=== PATIENT | female | born 1990 | race African-American/Black ===

== ENCOUNTER 2018-12-29 10:37 | Inpatient (IN) | payer SELFPAY ==
[2018-12-29] MEDS ORDERED: MORPHINE SULFATE 10 MG/ML INJ IM ONE (11:16)
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
[2018-12-29] MEDS ORDERED: ENOXAPARIN SODIUM INJ 80 MG/0.8 ML DISP.SYRIN SUBCUT ONE (11:53)
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
--- NOTE | 2018-12-29 12:10 | RADIOLOGY REPORT (SQ) ---
EXAM DESCRIPTION: VENOUS UNILATERAL LOWER COMPLETED DATE/TIME: 12/29/2018 12:00 pm REASON FOR STUDY: Left lower extremity pain and swelling COMPARISON: None. TECHNIQUE: Dynamic and static damian scale and color images acquired of the left leg venous system. Se lected spectral images acquired with additional compression and augmentation maneuvers. The contralat eral common femoral vein and saphenofemoral junction were also imaged. Images stored on PACS. LIMITATIONS: None. FINDINGS: COMMON FEMORAL: Normal phasicity, compression and augmentation. No visualized echogenic ma terial on damian scale. No defects on color images. FEMORAL: Normal compression and augmentation. No visualized echogenic material on damian scale. No defe cts on color images. POPLITEAL: Partially occlusive thrombus. CALF VESSELS: Occlusive thrombus in the posterior tibial and peroneal vein. GSV and SSV: Normal compression, augmentation. No visualized echogenic material on damian scale. No def ects on color images. ANY DEEP VENOUS INSUFFICIENCY: Not evaluated. ANY EVIDENCE OF POPLITEAL CYST: No. OTHER: No other significant finding. CONTRALATERAL COMMON FEMORAL VEIN AND SAPHENOFEMORAL JUNCTION: Normal phasicity, compression and augmentation. No visualized echogenic material on damian scale. No de fects on color images. IMPRESSION: ACUTE DVT. PARTIALLY OCCLUSIVE THROMBUS IN THE POPLITEAL VEIN AND OCCLUSIVE THROMBUS IN THE POSTERIOR TIBIAL AND PERONEAL VEIN. TECHNICAL DOCUMENTATION: JOB ID: [id number] [employer] All Rights Reserved Reading location - IP/workstation name: [email or web address]
[2018-12-29 13:00] LABS: ABSOLUTE BASOPHILS # (AUTO) 0.1 10^3/uL (0.0-0.2); ABSOLUTE EOSINOPHILS # (AUTO) 0.2 10^3/uL (0.0-0.6); ABSOLUTE LYMPHOCYTES (AUTO) 2.2 10^3/uL (0.5-4.7); ABSOLUTE MONOCYTES (AUTO) 0.8 10^3/uL (0.1-1.4); ABSOLUTE NEUT (AUTO) 8.7 10^3/uL (1.7-8.2); BASOPHILS % (AUTO) 0.7 % (0-2); EOSINOPHILS % (AUTO) 1.3 % (0-6); HEMATOCRIT 47.4 % (36.0-47.0); HEMOGLOBIN 15.6 g/dL (12.0-15.5); LYMPHOCYTES % (AUTO) 18.5 % (13-45); MEAN CORPUSCULAR HEMOGLOBIN 28.6 pg (27.0-33.4); MEAN CORPUSCULAR HGB CONC 32.9 g/dL (32.0-36.0); MEAN CORPUSCULAR VOLUME 87 fl (80-97); MONOCYTES % (AUTO) 6.6 % (3-13); PLATELET COUNT 274 10^3/uL (150-450); RED BLOOD COUNT 5.46 10^6/uL (3.72-5.28); RED CELL DISTRIBUTION WIDTH 15.8 % (11.5-14.0); SEGMENTED NEUTROPHILS % (AUTO) 72.9 % (42-78); TOTAL CELLS COUNTED % (AUTO) 100 %
--- NOTE | 2018-12-29 13:11 | RADIOLOGY REPORT (SQ) ---
EXAM DESCRIPTION: TIBIA FIBULA LEFT COMPLETED DATE/TIME: 12/29/2018 1:03 pm REASON FOR STUDY: Left lower extremity pain COMPARISON: None. NUMBER OF VIEWS: Two views. TECHNIQUE: Two radiographic images acquired of the left tibia and fibula to include the knee and ank le in at least one projection. LIMITATIONS: None. FINDINGS: MINERALIZATION: Normal. BONES: No acute fracture or dislocation. No worrisome bone lesions. SOFT TISSUES: No obvious swelling or foreign body. OTHER: No other significant finding. IMPRESSION: NEGATIVE STUDY OF THE LEFT TIBIA AND FIBULA. NO RADIOGRAPHIC EVIDENCE OF ACUTE INJURY. TECHNICAL DOCUMENTATION: JOB ID: [id number] [employer]- All Rights Reserved Reading location - IP/workstation name: [email or web address]
[2018-12-29 13:20] LABS: ALANINE AMINOTRANSFERASE 33 U/L (9-52); ALBUMIN 4.3 g/dL (3.5-5.0); ALKALINE PHOSPHATASE 150 U/L (38-126); ANION GAP 11 (5-19); ASPARTATE AMINO TRANSFERASE 31 U/L (14-36); BILIRUBIN,DIRECT 0.2 mg/dL (0.0-0.4); BILIRUBIN,TOTAL 0.4 mg/dL (0.2-1.3); BLOOD UREA NITROGEN 5 mg/dL (7-20); CALCIUM 9.5 mg/dL (8.4-10.2); CARBON DIOXIDE 26 mmol/L (22-30); CHLORIDE 107 mmol/L (98-107); GLUCOSE 87 mg/dL (75-110); POTASSIUM 4.8 mmol/L (3.6-5.0); SODIUM 143.9 mmol/L (137-145); TOTAL PROTEIN 7.3 g/dL (6.3-8.2)
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
[2018-12-29] MEDS ORDERED: ONDANSETRON 4 MG TAB.RAPDIS PO PRN (15:46)
[2018-12-29] MEDS ORDERED: ACETAMINOPHEN 325 MG TABLET PO PRN (15:46)
--- NOTE | 2018-12-29 15:48 | RADIOLOGY REPORT (SQ) ---
EXAM DESCRIPTION: CTA CHEST COMPLETED DATE/TIME: 12/29/2018 3:31 pm REASON FOR STUDY: acute dvt COMPARISON: None. TECHNIQUE: CT scan of the chest performed using helical scanning technique with dynamic intravenous contrast injection. Images reviewed with lung, soft tissue and bone windows. Reconstructed coronal and sagittal MPR images reviewed. Additional 3 dimensional post-processing performed to develop Maximal Intensity Projection images (AL P). All images stored on PACS. All CT scanners at this facility use dose modulation, iterative reconstruction, and/or weight based d osing when appropriate to reduce radiation dose to as low as reasonably achievable (ALARA). [facility]: Dose Right [facility]: CareDose [facility]: Dose Right [facility]: Teradose 4D [facility]: Vigoda CONTRAST TYPE AND DOSE: contrast/concentration: Isovue 350.00 mg/ml; Total Contrast Delivered: 74.0 ml; Total Saline Delivered: 90.0 ml Contrast bolus adequate for pulmonary arteries and aorta. RENAL FUNCTION: BUN 5 creatinine 0.57. RADIATION DOSE: CT Rad equipment meets quality standard of care and radiation dose reduction techniq ues were employed. CTDIvol: 14.3 - 24.8 mGy. DLP: 543 mGy-cm. . LIMITATIONS: None. FINDINGS: LUNGS AND PLEURA: No masses, infiltrates, or pneumothorax. No pleural effusions or pleura l calcifications. AORTA AND GREAT VESSELS: No aneurysm. Contrast bolus not optimized for the aorta. HEART: No pericardial effusion. No significant coronary artery calcifications. PULMONARY ARTERIES: Thrombus in a segmental branch to the right lower lobe (axial series 3 images 63- 77 and reconstructed series 603, image 16). HILAR AND MEDIASTINAL STRUCTURES: No identified masses or abnormal nodes. HARDWARE: None in the chest. UPPER ABDOMEN: No significant findings. Limited exam. THYROID AND OTHER SOFT TISSUES: No masses. No adenopathy. BONES: No acute or significant finding. 3D MIPS: Confirm above findings. OTHER: Circumscribed low-attenuation mass in the right breast, measuring 2.4 cm. IMPRESSION: 1. THROMBUS IN A SEGMENTAL ARTERIAL BRANCH TO THE RIGHT LOWER LOBE. 2. RIGHT BREAST MASS, PROBABLY A CYST. RECOMMEND FOLLOW-UP WITH ELECTIVE ULTRASOUND OF THE RIGHT JORGE A AST. COMMENT: Quality ID # [id number]: Final reports with documentation of one or more dose reduction techniques (e.g., Automated exposure control, adjustment of the mA and/or kV according to patient size, use of iterative reconstruction technique) TECHNICAL DOCUMENTATION: JOB ID: [id number] [employer]- All Rights Reserved Reading location - IP/workstation name: [email or web address]
[2018-12-29 16:08] LABS: INTERNATIONAL RATION (INR) 0.96; PROTHROMBIN TIME 13.3 SEC (11.4-15.4)
--- NOTE | 2018-12-29 17:14 | PDOC H&P ---
History of Present Illness Admission Date/PCP: 12/29/18 15:15 Patient complains of: LEFT LEG PAIN History of Present Illness: BANDAR CARSON is a 28 year old female with no PMH. She presented to the emergency department with a 4-day history of left lower extremity pain. She describes the pain as 'pressure.' The patient admits to a 10 year history of smoking. She is not on control, denies recent travel, denies clotting disorder. Unilateral venous Doppler confirms acute DVT. Partially occlusive thrombus in the popliteal vein and occlusive thrombus in the posterior tibial and peroneal vein. The patient was treated with full dose Lovenox. She is without health insurance, and unable to afford [place] Lovenox. Plan to admit to hospitalist service on heparin gtt and bridged to oral anticoagulant. Past Medical History Past Medical History: UTERINE CYSTS Past Surgical History Past Surgical History: Reports: None Social History Information Source: Patient Lives with: Friend Smoking Status: Current Every Day Smoker Cigarettes Packs Per Day: 1 Number of Years Smokin Frequency of Alcohol Use: Occasional Hx Recreational Drug Use: Yes Drugs: Marijuana Hx Prescription Drug Abuse: No - Advance Directive Resuscitation Status: Full Code Family History Family History: DM, Hypertension Parental Family History Reviewed: Yes Children Family History Reviewed: Yes Sibling(s) Family History Reviewed.: Yes Medication/Allergy Home Medications: No Home Medications 12/29/18 Allergies/Adverse Reactions: No Known Allergies Allergy (Verified 12/29/18 10:39) Review of Systems All systems: reviewed and no additional remarkable complaints except as stated Physical Exam Vital Signs: Temp Pulse Resp BP Pulse Ox 99.1 F 90 18 128/81 H 99 12/29/18 11:04 12/29/18 11:04 12/29/18 11:04 12/29/18 11:04 12/29/18 11:04 Intake & Output 12/28/18 12/29/18 12/30/18 06:59 06:59 06:59 Weight 80 kg General appearance: PRESENT: no acute distress Eye exam: PRESENT: conjunctiva pink, PERRLA Mouth exam: PRESENT: moist, tongue midline Neck exam: PRESENT: full ROM Respiratory exam: PRESENT: clear to auscultation aniya, symmetrical, unlabored Cardiovascular exam: PRESENT: +S1, +S2 Pulses: PRESENT: normal radial pulses GI/Abdominal exam: PRESENT: normal bowel sounds, soft. ABSENT: tenderness Rectal exam: PRESENT: deferred Extremities exam: PRESENT: full ROM. ABSENT: joint swelling, pedal edema Musculoskeletal exam: PRESENT: full ROM, normal inspection Neurological exam: PRESENT: alert, awake, oriented to person, oriented to place, oriented to time, oriented to situation Psychiatric exam: PRESENT: appropriate affect Skin exam: PRESENT: dry, intact, normal color Results Laboratory Results: 12/29/18 12:25 12/29/18 12:25 12/29/18 12/29/18 12:25 12:25 WBC 12.0 H RBC 5.46 H Hgb 15.6 H Hct 47.4 H MCV 87 MCH 28.6 MCHC 32.9 RDW 15.8 H Plt Count 274 Seg Neutrophils % 72.9 Lymphocytes % 18.5 Monocytes % 6.6 Eosinophils % 1.3 Basophils % 0.7 Absolute Neutrophils 8.7 H Absolute Lymphocytes 2.2 Absolute Monocytes 0.8 Absolute Eosinophils 0.2 Absolute Basophils 0.1 Sodium 143.9 Potassium 4.8 Chloride 107 Carbon Dioxide 26 Anion Gap 11 BUN 5 L Creatinine 0.57 Est GFR ( Amer) > 60 Est GFR (Non-Af Amer) > 60 Glucose 87 Calcium 9.5 Total Bilirubin 0.4 AST 31 ALT 33 Alkaline Phosphatase 150 H Total Protein 7.3 Albumin 4.3 Impressions: Tibia/Fibula X-Ray 12/29/18 11:16 IMPRESSION: NEGATIVE STUDY OF THE LEFT TIBIA AND FIBULA. NO RADIOGRAPHIC EVIDENCE OF ACUTE INJURY. Venous Doppler Study 12/29/18 11:16 IMPRESSION: ACUTE DVT. PARTIALLY OCCLUSIVE THROMBUS IN THE POPLITEAL VEIN AND OCCLUSIVE THROMBUS IN THE POSTERIOR TIBIAL AND PERONEAL VEIN. Chest/Abdomen CTA 12/29/18 14:53 IMPRESSION: 1. THROMBUS IN A SEGMENTAL ARTERIAL BRANCH TO THE RIGHT LOWER LOBE. 2. RIGHT BREAST MASS, PROBABLY A CYST. RECOMMEND FOLLOW-UP WITH ELECTIVE ULTRASOUND OF THE RIGHT BREAST. Status: Imported from PACS Assessment & Plan - Diagnosis (1) DVT (deep venous thrombosis) Qualifiers: DVT location: lower extremity Affected thrombotic vein of extremity: popliteal Chronicity: acute Laterality: left Qualified Code(s): I82.432 - Acute embolism and thrombosis of left popliteal vein Is this a current diagnosis for this admission?: Yes Plan: Main risk factor is smoking - no control, travel or clotting factor disorder Patient w/o insurance cannot afford lovenox Admit on heparin gtt, plan to bridge to oral anticoagulant CTA chest to r/o PE - results pending will discuss with discharge planning about medication assistance - Time Time Spent: 30 to 50 Minutes Smoking Cessation Education: 3 to 10 minutes Anticipated discharge: Home Within: within 72 hours - Inpatient Certification Based on my medical assessment, after consideration of the patient's comorbidities, presenting symptoms, or acuity I expect that the services needed warrant INPATIENT care.: Yes I certify that my determination is in accordance with my understanding of Medicare's requirements for reasonable and necessary INPATIENT services [42 CFR 412.3e].: Yes Medical Necessity: Risk of Complication if Not Cared For in Hospital
[2018-12-29] MEDS ORDERED: HEPARIN SOD (PORCINE) 1,000 UNIT/ML 10 ML VIAL ONE (20:44)
[2018-12-29] MEDS: HEPARIN SODIUM,PORCINE/D5W 25,000 UNIT/250 ML RTUINJ IV PRN (20:54)
[2018-12-29] MEDS ORDERED: HEPARIN SOD (PORCINE) 1,000 UNIT/ML 10 ML VIAL IV ONE (21:15)
[2018-12-29] MEDS ORDERED: DIAZEPAM INJ 10 MG/2 ML DISP.SYRIN IV PRN (21:25)
[2018-12-29] MEDS: FAMOTIDINE 20 MG TABLET PO SCH (21:53)
[2018-12-29] MEDS: NALBUPHINE HCL INJ 10 MG/1 ML AMPULE IV PRN (21:53)
[2018-12-30] MEDS: DIAZEPAM 5 MG TABLET PO SCH ×3 (00:39→11:05)
[2018-12-30 03:14] LABS: ABSOLUTE BASOPHILS # (AUTO) 0.1 10^3/uL (0.0-0.2); ABSOLUTE EOSINOPHILS # (AUTO) 0.2 10^3/uL (0.0-0.6); ABSOLUTE LYMPHOCYTES (AUTO) 2.8 10^3/uL (0.5-4.7); ABSOLUTE MONOCYTES (AUTO) 0.7 10^3/uL (0.1-1.4); ABSOLUTE NEUT (AUTO) 9.5 10^3/uL (1.7-8.2); BASOPHILS % (AUTO) 0.4 % (0-2); EOSINOPHILS % (AUTO) 1.7 % (0-6); HEMATOCRIT 42.6 % (36.0-47.0); HEMOGLOBIN 14.1 g/dL (12.0-15.5); LYMPHOCYTES % (AUTO) 20.9 % (13-45); MEAN CORPUSCULAR HEMOGLOBIN 28.6 pg (27.0-33.4); MEAN CORPUSCULAR VOLUME 87 fl (80-97); MONOCYTES % (AUTO) 5.6 % (3-13); PLATELET COUNT 245 10^3/uL (150-450); RED BLOOD COUNT 4.92 10^6/uL (3.72-5.28); RED CELL DISTRIBUTION WIDTH 15.9 % (11.5-14.0); SEGMENTED NEUTROPHILS % (AUTO) 71.4 % (42-78); TOTAL CELLS COUNTED % (AUTO) 100 %; WHITE BLOOD COUNT 13.3 10^3/uL (4.0-10.5)
[2018-12-30 03:44] LABS: ANION GAP 6 (5-19); BLOOD UREA NITROGEN 7 mg/dL (7-20); CALCIUM 9.2 mg/dL (8.4-10.2); CARBON DIOXIDE 26 mmol/L (22-30); CHLORIDE 105 mmol/L (98-107); GLUCOSE 95 mg/dL (75-110); PHOSPHORUS 3.5 mg/dL (2.5-4.5); POTASSIUM 4.9 mmol/L (3.6-5.0); SODIUM 137.1 mmol/L (137-145)
[2018-12-30] MEDS: HEPARIN SODIUM,PORCINE/D5W 25,000 UNIT/250 ML RTUINJ IV PRN (05:09)
[2018-12-30] MEDS: NALBUPHINE HCL INJ 10 MG/1 ML AMPULE IV PRN (07:57)
[2018-12-30] MEDS: FAMOTIDINE 20 MG TABLET PO SCH (09:05)
[2018-12-30] MEDS ORDERED: ENOXAPARIN SODIUM INJ 30 MG/0.3 ML DISP.SYRIN SUBCUT SCH (10:00)
[2018-12-30 10:13] LABS: APPEARANCE,URINE SLIGHTLY-CLOUDY; BILIRUBIN,URINE NEGATIVE (NEGATIVE); COLOR,URINE YELLOW; GLUCOSE, URINE NEGATIVE (NEGATIVE); KETONES,URINE NEGATIVE (NEGATIVE); LEUKOCYTE ESTERASE,URINE NEGATIVE (NEGATIVE); NITRITE,URINE NEGATIVE (NEGATIVE); PROTEIN,URINE NEGATIVE (NEGATIVE); URINE SPECIFIC GRAVITY 1.016
[2018-12-30] MEDS ORDERED: RIVAROXABAN 15 MG TABLET PO ONE (13:30)
[2018-12-30 16:40] VITALS: BP 127/85
[2018-12-30] MEDS ORDERED: RIVAROXABAN 15 MG TABLET PO SCH (17:00)
[2019-01-01 12:39] LABS: ANTICHROMATIN AB <0.2 AI (0.0-0.9); RA LATEX TURBIDITY <10.0 IU/mL (0.0-13.9); SJOGREN'S ANTI-SS-B AB <0.2 AI (0.0-0.9); SJOGREN'S SS-A ANTIBODY <0.2 AI (0.0-0.9)
[2019-01-01 14:07] LABS: DNA DOUBLE STRAND ANTIBODY ANA <1 IU/mL (0-9)
[2019-01-02 20:38] LABS: ANTICARDIOLIPIN IGA AB <9 APL U/mL (0-11); ANTICARDIOLIPIN IGG AB <9 GPL U/mL (0-14); ANTICARDIOLIPIN IGM AB 9 MPL U/mL (0-12); BETA-2 GLYCOPROTEIN I IGA AB <9 (0-25); BETA-2 GLYCOPROTEIN I IGG AB <9 (0-20); BETA-2 GLYCOPROTEIN I IGM AB <9 (0-32)
--- NOTE | 2019-01-04 12:54 | PDOC DISCHARGE SUMMARY ---
General - Admit/Disc Date/PCP Admission Date/Primary Care Provider: 12/29/18 15:15 Discharge Date: 12/30/18 - Discharge Diagnosis (1) DVT (deep venous thrombosis) Is this a current diagnosis for this admission?: Yes (2) Pulmonary embolism Is this a current diagnosis for this admission?: Yes - Additional Information Resuscitation Status: Full Code Discharge Diet: As Tolerated Discharge Activity: Activity As Tolerated, Balance Activity w/Rest Prescriptions: Oxycodone HCl/Acetaminophen [Percocet 5-325 mg Tablet] 1 tab PO ASDIR PRN #15 tab PRN Reason: Rivaroxaban [Xarelto 15 mg Tablet] 15 mg PO BIDBS #40 tablet Rivaroxaban [Xarelto] 20 mg PO DAILY #30 tablet Home Medications: Oxycodone HCl/Acetaminophen [Percocet 5-325 mg Tablet] 1 tab PO ASDIR PRN #15 tab 12/30/18 Rivaroxaban [Xarelto 15 mg Tablet] 15 mg PO BIDBS #40 tablet 12/30/18 Rivaroxaban [Xarelto] 20 mg PO DAILY #30 tablet 12/30/18 Clonazepam [Klonopin] 0.5 mg PO BID #14 tablet 12/31/18 History of Present Illness History of Present Illness: BANDAR CARSON is a 28 year old female with no PMH. She presented to the emergency department with a 4-day history of left lower extremity pain. She describes the pain as 'pressure.' The patient admits to a 10 year history of smoking. She is not on control, denies recent travel, denies clotting disorder. Unilateral venous Doppler confirms acute DVT. Partially occlusive thrombus in the popliteal vein and occlusive thrombus in the posterior tibial and peroneal vein. The patient was treated with full dose Lovenox. She is without health insurance, and unable to afford [place] Lovenox. Plan to admit to hospitalist service on heparin gtt and bridged to oral anticoagulant. Hospital Course Hospital Course: BANDAR CARSON is a 28 year old female with no PMH. She was admitted to [facility] with a DVT and placed on a heparin gtt. CTA chest was done and found a thrombus in the segmental arterial branch of the RLL. The patient was without respiratory symptoms, she denied chest pain and her vital signs were completely normal. Her primary risk factor for DVT/PE was that she is a smoker. Consulted Heme/Onc, who recommended a number of laboratory studies to test for clotting factor disorders. Discharge planning was notified of the patient, her lack of insurance and need for xarelto. We were able to provide the patient with 1-2 months of free Xarelto and a coupon for a significant discount for the following months (out of pocket expense would roughly be $5-10). The patient stated she could afford the medication. The patient was given her first dose of xarelto at [facility]. She was discharged with prescriptions for the medication. Additionally, she was instructed to follow up with Dr. Neff, Heme/Onc. For further information regarding this patient's hospitalization, please refer to the EMR. Physical Exam Vital Signs: Temp Pulse Resp BP Pulse Ox 98.4 F 68 18 127/85 H 100 12/30/18 15:57 12/30/18 15:57 12/30/18 15:57 12/30/18 15:57 12/30/18 15:57 Results Laboratory Results: 12/30/18 02:48 12/30/18 02:48 Impressions: Tibia/Fibula X-Ray 12/29/18 11:16 IMPRESSION: NEGATIVE STUDY OF THE LEFT TIBIA AND FIBULA. NO RADIOGRAPHIC EVIDENCE OF ACUTE INJURY. Venous Doppler Study 12/29/18 11:16 IMPRESSION: ACUTE DVT. PARTIALLY OCCLUSIVE THROMBUS IN THE POPLITEAL VEIN AND OCCLUSIVE THROMBUS IN THE POSTERIOR TIBIAL AND PERONEAL VEIN. Chest/Abdomen CTA 12/29/18 14:53 IMPRESSION: 1. THROMBUS IN A SEGMENTAL ARTERIAL BRANCH TO THE RIGHT LOWER LOBE. 2. RIGHT BREAST MASS, PROBABLY A CYST. RECOMMEND FOLLOW-UP WITH ELECTIVE ULTRASOUND OF THE RIGHT BREAST. Status: Imported from PACS Qualifiers - * PATIENT BEING DISCHARGED WITH ANY OF THE FOLLOWING DIAGNOSIS: VTE (PE or DVT)
== END 2018-12-30 18:01 | disposition home or self-care (01) | DRG 299 ==
LOC: ER 10:37 → EH 15:15 → 4W 19:28
PROVIDERS: ADMIT Internal Medicine; ATTEND Internal Medicine
DX: I82.432 Acute embolism and thrombosis of left popliteal vein (principal); I26.99 Other pulmonary embolism without acute cor pulmonale; M79.89 Other specified soft tissue disorders; F17.210 Nicotine dependence, cigarettes, uncomplicated
CPT/HCPCS: 36415; 71275; 80048; 80053; 81001; 81240; 81241; 83520; 83735; 84100; 85025; 85610; 85730; 86146; 86147; 86225; 86235; 93971; 96372; 96374; 99285; J1644; J1650; J2270; J2300

== ENCOUNTER 2018-12-31 00:25 | Emergency (ER) | payer SELFPAY ==
--- NOTE | 2018-12-31 00:45 | ER Document Report ---
ED General - General Chief Complaint: Chest Pain Stated Complaint: CHEST PAIN Time Seen by Provider: 12/31/18 00:43 Notes: Patient is a 28-year-old female presents with complaint of chest pain. She has a pulmonary embolism. She was diagnosed a few days ago. She was admitted to the hospital and released today. She was prescribed oxycodone but has not been to the pharmacy and unable to fill prescriptions as of yet. She did take her Xarelto for the day. No fevers. No vomiting. She says it hurts to take a deep breath. She says the pain is why she has returned. No other complaints at this time. TRAVEL OUTSIDE OF THE [place] IN LAST 30 DAYS: No - Related Data Allergies/Adverse Reactions: No Known Allergies Allergy (Verified 12/29/18 10:39) Past Medical History - Social History Smoking Status: Current Every Day Smoker Frequency of alcohol use: None Drug Abuse: None Family History: DM, Hypertension Renal/ Medical History: Denies: Hx Peritoneal Dialysis - Immunizations Immunizations up to date: Yes Hx Diphtheria, Pertussis, Tetanus Vaccination: Yes Review of Systems - Review of Systems Notes: My Normal Review Basic REVIEW OF SYSTEMS: CONSTITUTIONAL : Denies fever, chills, or sweats. Denies recent illness. EENT: Denies eye, ear, throat, or mouth pain or symptoms. Denies nasal or sinus congestion. CARDIOVASCULAR: Chest pain RESPIRATORY: Feels short of breath due to pain with breathing. GASTROINTESTINAL: Denies abdominal pain. Denies nausea, vomiting, or diarrhea. MUSCULOSKELETAL: Denies neck or back pain or joint pain or swelling. SKIN: Denies rash or skin lesions. Neuro: No loss of consciousness. Denies headache. Denies weakness or paralysis or loss of use of either side. Denies problems with gait or speech. Denies sensory or motor loss. ALL OTHER SYSTEMS REVIEWED AND NEGATIVE. Physical Exam - Vital signs Vitals: Resp 21 H 12/30/18 22:05 - Notes Notes: General Appearance: Well nourished, alert, cooperative, no acute distress, moderate obvious discomfort. Patient is tachypneic taking fast shallow breaths due to pain. Vitals: reviewed, See vital signs table. Eyes: PERRL, EOMI, Conjuctiva clear Mouth: No decreasd moisture Lungs: No wheezing, No rales, No rhonci, No accessory muscle use, good air ex change bilaterally. Heart: Normal rate, Regular rythm, No murmur, no rub Abdomen: Normal BS, soft, No rigidity, No abdominal tenderness, No guarding, no rebound Extremities: good pulses in all extremities, no swelling or tenderness in the extremities, no edema. Skin: warm, dry, appropriate color, no rash Neuro: speech clear, oriented x 3, normal affect, responds appropriately to questions. Course - Re-evaluation Re-evalutation: 12/31/18 03:11 On reevaluation patient says her pain is little bit improved however she still very tachypneic. She is still breathing approximately 40-50 times a minute. We will give her a small dose of Ativan. I will try a dose of hydrocodone. We will see if this helps control her tachypnea and gets her feeling better. 12/31/18 06:41 After the dose of Ativan patient's tachypnea completely resolved and she looks very comfortable. I did reevaluate her and she says she is feeling improved. It appears that she has some pain that probably also endorses some anxiety and stress causing her tachypnea. I do not feel that she needs to be admitted to the hospital as her troponin and BNP are negative, her heart rate is normal, her blood pressure was normal, I do not see underlying signs of significant right heart strain. Her oxygen saturation is 100% on room air. At this time will discharge patient home. I informed her that we will place her on Klonopin and then also will give her Dexter to take until she can get her oxycodone prescription for later today. I strongly encouraged her return to ER if she has difficulty breathing, worsening pain, or feels that she is worsening in any way. Patient agrees with plan will be discharged home. Dictation of this chart was performed using voice recognition software; therefore, there may be some unintended grammatical errors. - Vital Signs Vital signs: Temp Pulse Resp BP Pulse Ox 97.8 F 87 17 138/86 H 96 12/31/18 05:00 12/31/18 00:30 12/31/18 04:31 12/31/18 04:31 12/31/18 04:31 - Laboratory Result Diagrams: 12/31/18 01:18 12/31/18 01:55 Laboratory results interpreted by me: 12/31/18 12/31/18 01:18 01:55 WBC 12.9 H RDW 15.7 H Sodium 135.4 L - EKG Interpretation by Me Additional EKG results interpreted by me: 12/31/18 00:43 EKG is reviewed and interpreted by me. EKG shows sinus rhythm with a rate of [address] segment elevation or depression. Some T wave inversions in the inferior leads. [place] interval, QRS duration, QT intervals are within normal range. Discharge - Discharge Clinical Impression: Pulmonary embolism Qualifiers: Pulmonary embolism type: unspecified Chronicity: acute Acute cor pulmonale presence: without acute cor pulmonale Qualified Code(s): I26.99 - Other pulmonary embolism without acute cor pulmonale Chest pain Qualifiers: Chest pain type: pleurodynia Qualified Code(s): R07.81 - Pleurodynia Condition: Good Disposition: HOME, SELF-CARE Additional Instructions: Please take your prescribed medications as prescribed. I have prescribed Klonopin. This is a medication that helps with stress that has to do with the pain from your blood clot in your lungs. I have also prescribed Dexter. This is a pain medicine you can take until you can get your oxycodone prescription fille d. Do not take the Dexter and oxycodone at the same time. Please try to wean yourself off these medications as soon as possible as we do not want you to become dependent or addicted to them. Please be aware that Dexter does have Tylenol (acetaminophen) in it. Please make sure you do not take more than 4000 mg of acetaminophen a day. Do not drive or care for children after you have taken this medication they will make you sleepy and sometimes impair judgment. Please return to ER immediately if you have fevers, worsening pain, difficulty breathing, or feel unwell. Please follow up with the [facility] or the follow up physician you referred to when you were discharged from the [facility]. Prescriptions: Clonazepam [Klonopin] 0.5 mg PO BID #14 tablet
[2018-12-31] MEDS ORDERED: HYDROMORPHONE HCL INJ/PF 2 MG/ML AMPULE IM ONE (00:52)
[2018-12-31 01:31] LABS: HEMATOCRIT 43.6 % (36.0-47.0); HEMOGLOBIN 14.3 g/dL (12.0-15.5); MEAN CORPUSCULAR HEMOGLOBIN 28.5 pg (27.0-33.4); MEAN CORPUSCULAR HGB CONC 32.9 g/dL (32.0-36.0); MEAN CORPUSCULAR VOLUME 87 fl (80-97); PLATELET COUNT 266 10^3/uL (150-450); RED BLOOD COUNT 5.03 10^6/uL (3.72-5.28); RED CELL DISTRIBUTION WIDTH 15.7 % (11.5-14.0); WHITE BLOOD COUNT 12.9 10^3/uL (4.0-10.5)
[2018-12-31] MEDS ORDERED: MORPHINE SULFATE 10 MG/ML INJ IV ONE (01:51)
[2018-12-31 02:17] LABS: ANION GAP 5 (5-19); BLOOD UREA NITROGEN 8 mg/dL (7-20); CALCIUM 9.6 mg/dL (8.4-10.2); CARBON DIOXIDE 27 mmol/L (22-30); CHLORIDE 103 mmol/L (98-107); GLUCOSE 99 mg/dL (75-110); POTASSIUM 4.7 mmol/L (3.6-5.0); SODIUM 135.4 mmol/L (137-145)
[2018-12-31 02:29] LABS: NT PRO BNP 82 pg/mL (<125); TROPONIN I < 0.012 ng/mL
--- NOTE | 2018-12-31 02:30 | RADIOLOGY REPORT (SQ) ---
EXAM DESCRIPTION: XR CHEST 1 VIEW COMPLETED DATE/TME: 12/31/2018 01:51 CLINICAL HISTORY: 28 years, Female, dyspnea COMPARISON: None. NUMBER OF VIEWS: 1 TECHNIQUE: AP portable chest LIMITATIONS: None. FINDINGS: Heart size is normal. Mild elevation of the right hemidiaphragm. Minimal subsegmental atelectasis in the lung bases. No pneumothorax. IMPRESSION: No acute cardiopulmonary process copyright 2010 [employer]- All Rights Reserved
[2018-12-31] MEDS ORDERED: LORAZEPAM 1 MG TABLET PO ONE (03:02)
[2018-12-31] MEDS ORDERED: HYDROCODONE/ACETAMINOPHEN 5-325 MG TABLET PO ONE (03:10)
[2018-12-31] MEDS ORDERED: LORAZEPAM INJ 2 MG/1 ML VIAL IV ONE (03:10)
[2018-12-31 04:09] VITALS: BP 138/86
[2018-12-31 04:22] LABS: VENOUS BLOOD BASE EXCESS 0.3 mmol/L; VENOUS BLOOD HCO3 25.8 mmol/L (20-32); VENOUS BLOOD PCO2 44.8 mmHg (35-63); VENOUS BLOOD PH 7.38 (7.30-7.42)
[2018-12-31] MEDS ORDERED: HYDROCODONE/ACETAMINOPHEN 5-325 MG (6 TAB/ER DISP) PO PRN (04:46)
--- NOTE | 2018-12-31 07:45 | EKG REPORT ---
SEVERITY:- ABNORMAL ECG - SINUS RHYTHM NONSPECIFIC T ABNORMALITIES, INFERIOR LEADS : Confirmed by: Ortiz Dugan MD 31-Dec-2018 07:45:11
== END 2018-12-31 05:18 | disposition home or self-care (01) ==
LOC: ER 00:25
DX: I26.99 Other pulmonary embolism without acute cor pulmonale (principal); R07.81 Pleurodynia; Z79.899 Other long term (current) drug therapy; F17.200 Nicotine dependence, unspecified, uncomplicated
CPT/HCPCS: 93005; 99284; 96372; 96374; 96375; 36415; 85027; 80048; 84484; 82803; 83880; 71045; 93010; J2270; J1170; J2060

== ENCOUNTER 2019-01-18 18:58 | Emergency (ER) | payer SELFPAY ==
[2019-01-18] MEDS ORDERED: EPINEPHRINE INJ/PF 1 MG/1 ML AMPULE ONE (19:22)
[2019-01-18] MEDS ORDERED: EPINEPHRINE INJ/PF 1 MG/1 ML AMPULE IM ONE (19:47)
[2019-01-18] MEDS ORDERED: FAMOTIDINE INJ/PF 20 MG/2 ML SDV IV ONE ×2 (19:47→19:56)
[2019-01-18] MEDS ORDERED: METHYLPREDNISOLONE INJ 125 MG/2 ML SDV ONE (19:47)
[2019-01-18] MEDS ORDERED: DIPHENHYDRAMINE HCL 50 MG/ML VIAL ONE (19:47)
--- NOTE | 2019-01-18 19:47 | ER Document Report ---
ED Allergic Reaction - General Chief Complaint: Hives Stated Complaint: POSSIBLE ALLERGIC REACTION Time Seen by Provider: 01/18/19 19:46 Primary Care Provider: JOSUE QUIGLEY [NO LOCAL MD] - Follow up as needed Mode of Arrival: Ambulatory Information source: Patient Notes: HISTORY OF PRESENT ILLNESS: Patient is a 28-year-old female with no significant past medical history who presents with allergic reaction to fire ants that she sustained on her left foot prior to arrival. Location: Left foot Onset: Sudden prior to arrival Provocation: "I was bitten by fire ants" Quality: Burning, itching, hives Radiation: Global Severity: Moderate Timing: Constant Associated symptoms: No fevers or chills, no cough or congestion, no shortness of breath or swelling of the throat REVIEW OF SYSTEMS: CONSTITUTIONAL : Positive for allergic reaction. Denies fever or chills, no sweats. Denies recent illness. EENT: Denies eye, ear, throat, or mouth pain or symptoms. Denies nasal or sinus congestion. CARDIOVASCULAR: Denies chest pain. RESPIRATORY: Denies cough, cold, or chest congestion. Denies shortness of breath, difficulty breathing, or wheezing. GASTROINTESTINAL: Denies abdominal pain. Denies nausea, vomiting, or diarrhea. Denies constipation. GENITOURINARY: Denies difficulty urinating, painful urination, burning, frequency, or blood in urine. Denies vaginal bleeding, abnormal or irregular periods. MUSCULOSKELETAL: Denies neck or back pain or joint pain or swelling. SKIN: Positive for urticarial rash. HEMATOLOGIC : Denies easy bruising or bleeding. LYMPHATIC: Denies swollen, enlarged glands. NEUROLOGICAL: Denies altered mental status or loss of consciousness. Denies headache. Denies weakness or paralysis or loss of use of either side. Denies problems with gait or speech. Denies sensory or motor loss. PSYCHIATRIC: Denies anxiety or stress or depression. All other systems reviewed and negative. PHYSICAL EXAMINATION: GENERAL: Well-appearing, well-nourished and in no acute distress. HEAD: Atraumatic, normocephalic. No scalp deformity, depression, or crepitance. EYES: Pupils are 3 mm and equal/round/reactive to light, extraocular movements intact, sclera anicteric, conjunctiva are normal. ENT: Nares patent bilaterally, oropharynx clear without exudates or palatal petechia. Moist mucous membranes. No tonsil hypertrophy. NECK: No stridor. Normal range of motion, supple without lymphadenopathy. LUNGS: Breath sounds present, equal, and clear to auscultation bilaterally. No wheezes, rales, or rhonchi. HEART: Regular rate and rhythm without murmurs, rubs, or gallops. 2+ peripheral pulses. Normal capillary refill. ABDOMEN: Soft, nontender, nondistended. Normoactive bowel sounds. No guarding, no rebound. No masses appreciated. BACK: Normal contour, no midline tenderness. Rectal exam deferred. PELVC: Deferred. EXTREMITIES: Normal range of motion, no pitting or edema. No cyanosis. NEUROLOGICAL: No focal neurological deficits. Moves all extremities spontaneously and on command. PSYCH: Normal mood, normal affect. No suicidal thoughts/ideations. No homocidal thoughts/ideations. No hallucinations. SKIN: Small area of urticaria isolated to the left lateral malleolus. Warm, dry, normal turgor, no lesions noted. ASSESSMENT AND PLAN: This patient is a 28-year-old female who presents with possible allergic r eaction to fire ants. Patient has intact and normal airway without swelling to the posterior oropharynx, no wheezing, no stridor. 1. Will give IV Pepcid, Benadryl, and Solu-Medrol. 2. Will observe the patient for 2-3 hours for symptomatic improvement. TRAVEL OUTSIDE OF THE [place] IN LAST 30 DAYS: No - Related Data Allergies/Adverse Reactions: bee venom protein (honey bee) Allergy (Verified 01/18/19 22:06) fire ant Allergy (Verified 01/18/19 22:06) Past Medical History - General Information source: Patient - Social History Smoking Status: Never Smoker Chew tobacco use (# tins/day): No Frequency of alcohol use: None Drug Abuse: None Lives with: Family Family History: DM, Hypertension Patient has suicidal ideation: No Patient has homicidal ideation: No - Medical History Medical History: Negative - Past Medical History Cardiac Medical History: Reports: None Pulmonary Medical History: Reports: None EENT Medical History: Reports: None Neurological Medical History: Reports: None Endocrine Medical History: Reports: None Renal/ Medical History: Reports: None. Denies: Hx Peritoneal Dialysis Malignancy Medical History: Reports: None GI Medical History: Reports: None Musculoskeletal Medical History: Reports None Skin Medical History: Reports None Psychiatric Medical History: Reports: None Traumatic Medical History: Reports: None Infectious Medical History: Reports: None Surgical Hx: Negative Past Surgical History: Reports: None - Immunizations Immunizations up to date: Yes Hx Diphtheria, Pertussis, Tetanus Vaccination: Yes History of Influenza Vaccine for 08/2017 - 01/2018 Season: No Physical Exam - Vital signs Vitals: Temp Pulse Resp BP Pulse Ox 98.2 F 84 16 129/81 H 97 01/18/19 19:05 01/18/19 19:05 01/18/19 19:05 01/18/19 19:05 01/18/19 19:05 Course - Re-evaluation Re-evalutation: 01/19/19 00:33 Patient has been observed an adequate amount of time, and a reexamination reveals no evidence of urticaria or other symptoms consistent with an allergic reaction. She will be discharged home with return precautions and follow-up as needed. Patient reports both understanding and agreeing with the plan. - Vital Signs Vital signs: Temp Pulse Resp BP Pulse Ox 98.5 F 69 16 125/87 H 99 01/19/19 00:52 01/19/19 00:52 01/19/19 00:52 01/19/19 00:52 01/19/19 00:52 Discharge - Discharge Clinical Impression: Allergic reaction Qualifiers: Encounter type: initial encounter Qualified Code(s): T78.40XA - Allergy, unspecified, initial encounter Condition: Good Disposition: HOME, SELF-CARE Instructions: Acute Allergic Reaction ([facility]) Additional Instructions: You have been evaluated in the Emergency Department for having an allergic reaction to ants. While here, you were given medications and observed with improvement and it is now safe to be discharged home. Please follow-up with your primary physician as instructed in 1 week to be reassessed if necessary. Return to the Emergency Department if you experience recurrence of symptoms, difficulty breathing, have hives/rash, or any other concerning symptoms. Prescriptions: Methylprednisolone [Medrol Dosepack (4 mg/Tab) 21 Tab/Dosepak] 4 mg PO ASDIR PRN #21 tab.ds.pk PRN Reason: Referrals: LOCALMD,NO [NO LOCAL MD] - Follow up as needed Print Language: Indonesian
[2019-01-18] MEDS ORDERED: DIPHENHYDRAMINE HCL 50 MG/ML VIAL IV ONE (19:56)
[2019-01-18] MEDS ORDERED: METHYLPREDNISOLONE INJ 125 MG/2 ML SDV IV ONE (19:56)
[2019-01-19 00:53] VITALS: BP 125/87
== END 2019-01-19 00:53 | disposition home or self-care (01) ==
LOC: ER 18:58
DX: L50.9 Urticaria, unspecified (principal)
CPT/HCPCS: 99282; 96372; 96374; 96375; J1200; J0171; J2930; S0028

== ENCOUNTER 2020-08-07 05:36 | Emergency (ER) | payer SELFPAY ==
[2020-08-07 06:24] LABS: ABSOLUTE BASOPHILS # (AUTO) 0.1 10^3/uL (0.0-0.2); ABSOLUTE EOSINOPHILS # (AUTO) 0.2 10^3/uL (0.0-0.6); ABSOLUTE LYMPHOCYTES (AUTO) 2.4 10^3/uL (0.5-4.7); ABSOLUTE MONOCYTES (AUTO) 0.6 10^3/uL (0.1-1.4); ABSOLUTE NEUT (AUTO) 6.4 10^3/uL (1.7-8.2); BASOPHILS % (AUTO) 0.9 % (0-2); EOSINOPHILS % (AUTO) 1.8 % (0-6); HEMATOCRIT 44.1 % (36.0-47.0); HEMOGLOBIN 14.9 g/dL (12.0-15.5); LYMPHOCYTES % (AUTO) 24.8 % (13-45); MEAN CORPUSCULAR HEMOGLOBIN 29.7 pg (27.0-33.4); MEAN CORPUSCULAR HGB CONC 33.9 g/dL (32.0-36.0); MEAN CORPUSCULAR VOLUME 88 fl (80-97); MONOCYTES % (AUTO) 6.2 % (3-13); PLATELET COUNT 259 10^3/uL (150-450); RED BLOOD COUNT 5.02 10^6/uL (3.72-5.28); RED CELL DISTRIBUTION WIDTH 15.1 % (11.5-14.0); SEGMENTED NEUTROPHILS % (AUTO) 66.3 % (42-78); TOTAL CELLS COUNTED % (AUTO) 100 %; WHITE BLOOD COUNT 9.6 10^3/uL (4.0-10.5)
[2020-08-07] MEDS ORDERED: FENTANYL CITRATE INJ/PF 100 MCG/2 ML AMPUL IV ONE (06:27)
[2020-08-07 06:31] LABS: INTERNATIONAL RATION (INR) 0.95; PROTHROMBIN TIME 12.8 SEC (11.4-15.4)
--- NOTE | 2020-08-07 06:32 | ER Document Report ---
ED General - General Chief Complaint: Chest Pain Stated Complaint: CHEST PAIN Time Seen by Provider: 08/07/20 06:16 Primary Care Provider: MIGUELANGEL BLAND FNP [Primary Care Provider] - Follow up as needed Mode of Arrival: Ambulatory Information source: Patient Notes: Patient reports right sided chest pain for the past 4 days. Patient complains of the pain with inspiration that she describes as a pinching sensation. Patient denies any cough or shortness of breath. Patient denies any fever. Patient denies nausea vomiting or diarrhea. Patient without any urinary symptoms. Patient does have a previous history of DVT and PE diagnosed in 2019 for which she takes Xarelto. Patient denies missing any doses. TRAVEL OUTSIDE OF THE [place] IN LAST 30 DAYS: No - HPI Onset: Other - 4 days Onset/Duration: Persistent Quality of pain: Other - Pinching Pain Level: 3 Associated symptoms: Chest pain. denies: Nonproductive cough, Productive cough, Diarrhea, Fever, Headache, Nausea, Vomiting, Shortness of breath Exacerbated by: Deep breathing Relieved by: Denies Similar symptoms previously: No Recently seen / treated by doctor: No - Related Data Allergies/Adverse Reactions: bee venom protein (honey bee) Allergy (Verified 08/07/20 07:34) fire ant Allergy (Verified 08/07/20 07:34) Home Medications: Xarelto Past Medical History - General Information source: Patient - Social History Smoking Status: Current Every Day Smoker Frequency of alcohol use: Occasional Drug Abuse: None Occupation: Restaurant Family History: DM, Hypertension - Past Medical History Cardiac Medical History: Reports: Hx DVT, Hx Pulmonary Embolism Renal/ Medical History: Denies: Hx Peritoneal Dialysis Surgical Hx: Negative - Immunizations Immunizations up to date: Yes Hx Diphtheria, Pertussis, Tetanus Vaccination: Yes Review of Systems - Review of Systems Constitutional: No symptoms reported. denies: Fever EENT: No symptoms reported Cardiovascular: Chest pain. denies: Syncope, Dizziness Respiratory: Hurts to breathe. denies: Cough, Short of breath Gastrointestinal: No symptoms reported. denies: Diarrhea, Nausea, Vomiting Genitourinary: No symptoms reported. denies: Dysuria Female Genitourinary: No symptoms reported Musculoskeletal: No symptoms reported. denies: Back pain, Leg swelling Skin: No symptoms reported Hematologic/Lymphatic: No symptoms reported Neurological/Psychological: No symptoms reported Physical Exam - Vital signs Vitals: Temp Pulse Resp BP Pulse Ox 98.1 F 67 18 134/82 H 97 08/07/20 05:45 08/07/20 05:45 08/07/20 05:45 08/07/20 05:45 08/07/20 05:45 - Notes Notes: PHYSICAL EXAMINATION: GENERAL: Well-appearing and in no acute distress. HEAD: Atraumatic, normocephalic. EYES: sclera anicteric, conjunctiva are normal. ENT: nares patent. Moist mucous membranes. NECK: Normal range of motion, supple without lymphadenopathy LUNGS: CTAB and equal. Tenderness to anterior right lower costal area with deep inspiration, no wheezes rales or rhonchi. HEART: Regular rate and rhythm without murmurs, no tachypnea ABDOMEN: Soft, mild epigastric tenderness, mildly tender to the right upper quadrant, normal bowel sounds, no guarding. EXTREMITIES: Normal range of motion, no pitting edema. No cyanosis. BACK: No CVA tenderness NEUROLOGICAL: Cranial nerves grossly intact. Normal speech. PSYCH: Normal mood, normal affect. SKIN: Warm, Dry, normal turgor, no rashes or lesions noted Course - Re-evaluation Re-evalutation: 08/07/20 07:53 Presentation of chest pain in an otherwise well appearing patient. Low clinical suspicion for ACS given clinical history, exam, EKG without ST elevations or depressions, and negative initial troponin. HEART score less than or equal to 3. PE also seems unlikely given clinical history, absence of tachycardia, absence of hypoxia, and given patient's compliance with taking her Xarelto. CXR without evidence of pneumothorax or pneumonia. No widened mediastinum. Patient with normal LFTs and no evidence for any biliary obstruction noted on ultrasound. Chest pain in a patient without evidence of cardiac or other serious etiology on workup today. I discussed with patient that, based on their age, risk factors and emergency department testing today, the likelihood that their symptoms are related to a heart attack is very low. The patient demonstrates decision making capacity and has verbalized an understanding of these risks to me. Based on this, the patient has chosen to follow-up as an outpatient. Usual chest pain return precautions reviewed. The patient states understanding and agreement with this plan. 08/07/20 08:[address] Ching regarding patient presentation and diagnostic evaluation. Does not recommend any additional testing at this time. Patient does have reproducible chest wall pain with movement and deep inspiration. Patient encouraged to return as needed for any new or worsening symptoms. Patient encouraged to see a primary doctor for recheck. Patient verbalized understanding is agreeable with discharge plan of care. - Vital Signs Vital signs: Temp Pulse Resp BP Pulse Ox 98.1 F 67 18 128/85 H 99 08/07/20 05:45 08/07/20 05:45 08/07/20 07:01 08/07/20 07:01 08/07/20 07:01 - Laboratory Result Diagrams: 08/07/20 06:10 08/07/20 06:10 Laboratory results interpreted by me: 08/07/20 08/07/20 08/07/20 06:10 06:10 07:01 RDW 15.1 H Sodium 136.8 L Chloride 108 H Carbon Dioxide 20 L Urine Blood LARGE H Urine Ascorbic Acid 20 H 08/07/20 07:53 Labs- All tests 24 hr 08/07/20 08/07/20 08/07/20 06:10 06:10 06:10 WBC 9.6 RBC 5.02 Hgb 14.9 Hct 44.1 MCV 88 MCH 29.7 MCHC 33.9 RDW 15.1 H Plt Count 259 Lymph % (Auto) 24.8 [place] % (Auto) 6.2 Eos % (Auto) 1.8 Baso % (Auto) 0.9 Absolute Neuts (auto) 6.4 Absolute Lymphs (auto) 2.4 Absolute Monos (auto) 0.6 Absolute Eos (auto) 0.2 Absolute Basos (auto) 0.1 Seg Neutrophils % 66.3 PT 12.8 INR 0.95 D-Dimer Sodium 136.8 L Potassium 4.1 Chloride 108 H Carbon Dioxide 20 L Anion Gap 9 BUN 11 Creatinine 0.66 Est GFR ( Amer) > 60 Est GFR (MDRD) Non-Af > 60 Glucose 98 Calcium 9.6 Total Bilirubin 0.3 Direct Bilirubin 0.2 Neonat Total Bilirubin Not Reportable Neonat Direct Bilirubin Not Reportable Neonat Indirect Bili Not Reportable AST 23 ALT 24 Alkaline Phosphatase 91 Creatine Kinase 97 CK-MB (CK-2) Troponin I Total Protein 6.4 Albumin 3.6 Lipase Serum HCG, Qual Urine Color Urine Appearance Urine pH Ur Specific [place] Urine Protein Urine Glucose (UA) Urine Ketones Urine Blood Urine Nitrite Urine Bilirubin Urine Urobilinogen Ur Leukocyte Esterase Urine WBC (Auto) Urine RBC (Auto) Urine Bacteria (Auto) Squamous Epi Cells Auto Urine Mucus (Auto) Urine Ascorbic Acid 08/07/20 08/07/20 08/07/20 06:10 06:10 06:10 WBC RBC Hgb Hct MCV MCH MCHC RDW Plt Count Lymph % (Auto) [place] % (Auto) Eos % (Auto) Baso % (Auto) Absolute Neuts (auto) Absolute Lymphs (auto) Absolute Monos (auto) Absolute Eos (auto) Absolute Basos (auto) Seg Neutrophils % PT INR D-Dimer Sodium Potassium Chloride Carbon Dioxide Anion Gap BUN Creatinine Est GFR ( Amer) Est GFR (MDRD) Non-Af Glucose Calcium Total Bilirubin Direct Bilirubin Neonat Total Bilirubin Neonat Direct Bilirubin Neonat Indirect Bili AST ALT Alkaline Phosphatase Creatine Kinase CK-MB (CK-2) 1.34 Troponin I < 0.012 Total Protein Albumin Lipase 85.6 Serum HCG, Qual NEGATIVE Urine Color Urine Appearance Urine pH Ur Specific [place] Urine Protein Urine Glucose (UA) Urine Ketones Urine Blood Urine Nitrite Urine Bilirubin Urine Urobilinogen Ur Leukocyte Esterase Urine WBC (Auto) Urine RBC (Auto) Urine Bacteria (Auto) Squamous Epi Cells Auto Urine Mucus (Auto) Urine Ascorbic Acid 08/07/20 08/07/20 06:10 07:01 WBC RBC Hgb Hct MCV MCH MCHC RDW Plt Count Lymph % (Auto) [place] % (Auto) Eos % (Auto) Baso % (Auto) Absolute Neuts (auto) Absolute Lymphs (auto) Absolute Monos (auto) Absolute Eos (auto) Absolute Basos (auto) Seg Neutrophils % PT INR D-Dimer 0.35 Sodium Potassium Chloride Carbon Dioxide Anion Gap BUN Creatinine Est GFR ( Amer) Est GFR (MDRD) Non-Af Glucose Calcium Total Bilirubin Direct Bilirubin Neonat Total Bilirubin Neonat Direct Bilirubin Neonat Indirect Bili AST ALT Alkaline Phosphatase Creatine Kinase CK-MB (CK-2) Troponin I Total Protein Albumin Lipase Serum HCG, Qual Urine Color YELLOW Urine Appearance CLEAR Urine pH 5.0 Ur Specific [place] 1.021 Urine Protein NEGATIVE Urine Glucose (UA) NEGATIVE Urine Ketones NEGATIVE Urine Blood LARGE H Urine Nitrite NEGATIVE Urine Bilirubin NEGATIVE Urine Urobilinogen NEGATIVE Ur Leukocyte Esterase NEGATIVE Urine WBC (Auto) 1 Urine RBC (Auto) 4 Urine Bacteria (Auto) TRACE Squamous Epi Cells Auto 2 Urine Mucus (Auto) OCC Urine Ascorbic Acid 20 H - Diagnostic Test Radiology reviewed: Reports reviewed - EKG Interpretation by Me EKG shows normal: Sinus rhythm Rate: Normal Rhythm: NSR Additional EKG results interpreted by me: 08/07/20 07:52 Sinus rhythm with a rate of 71, QTc 413, no acute ischemic changes Discharge - Discharge Clinical Impression: Chest pain Qualifiers: Chest pain type: unspecified Qualified Code(s): R07.9 - Chest pain, unspecified Condition: Stable Disposition: HOME, SELF-CARE Instructions: Chest Wall Pain ([facility]), Muscle Relaxers ([facility]) Additional Instructions: Return immediately for any new or worsening symptoms: Worsening pain, fever, shortness of breath, vomiting new or worsening symptoms Followup with your primary care provider, call tomorrow to make a followup appointment Prescriptions: Cyclobenzaprine HCl [Flexeril 10 Mg Tablet] 10 mg PO TID #15 tablet Forms: Return to Work Referrals: MIGUELANGEL BLAND FNP [Primary Care Provider] - Follow up as needed
[2020-08-07 06:47] LABS: ALBUMIN 3.6 g/dL (3.5-5.0); ALKALINE PHOSPHATASE 91 U/L (38-126); ANION GAP 9 (5-19); ASPARTATE AMINO TRANSFERASE 23 U/L (14-36); BILIRUBIN,DIRECT 0.2 mg/dL (0.0-0.4); BILIRUBIN,TOTAL 0.3 mg/dL (0.2-1.3); BLOOD UREA NITROGEN 11 mg/dL (7-20); CALCIUM 9.6 mg/dL (8.4-10.2); CARBON DIOXIDE 20 mmol/L (22-30); CHLORIDE 108 mmol/L (98-107); CREATINE KINASE 97 U/L (30-135); GLUCOSE 98 mg/dL (75-110); POTASSIUM 4.1 mmol/L (3.6-5.0); TOTAL PROTEIN 6.4 g/dL (6.3-8.2)
--- NOTE | 2020-08-07 07:00 | RADIOLOGY REPORT (SQ) ---
CLINICAL HISTORY: chest pain, SOB COMPARISON: 12/31/2018. TECHNIQUE: XR CHEST 1 VIEW 08/07/2020 5:56 AM CDT FINDINGS: Cardiac silhouette is normal in size. Lungs are clear without consolidation, atelectasis, mass or edema. There is no pleural effusion. There is no pneumothorax. There are no acute osseous findings. IMPRESSION: Clear lungs.
[2020-08-07 07:03] LABS: CREATINE KINASE MB 1.34 ng/mL (<4.55)
[2020-08-07 07:08] LABS: TROPONIN I < 0.012 ng/mL
[2020-08-07 07:17] LABS: APPEARANCE,URINE CLEAR; BILIRUBIN,URINE NEGATIVE (NEGATIVE); COLOR,URINE YELLOW; GLUCOSE, URINE NEGATIVE (NEGATIVE); KETONES,URINE NEGATIVE (NEGATIVE); LEUKOCYTE ESTERASE,URINE NEGATIVE (NEGATIVE); NITRITE,URINE NEGATIVE (NEGATIVE); PROTEIN,URINE NEGATIVE (NEGATIVE); URINE SPECIFIC GRAVITY 1.021; UROBILINOGEN,URINE NEGATIVE mg/dL (<2.0)
--- NOTE | 2020-08-07 07:17 | EKG REPORT ---
SEVERITY:- NORMAL ECG - SINUS RHYTHM : Confirmed by: Ortiz Dugan MD 07-Aug-2020 07:16:49
--- NOTE | 2020-08-07 07:23 | RADIOLOGY REPORT (SQ) ---
EXAM DESCRIPTION: US ABDOMEN LIMITED COMPLETED DATE/TME: 08/07/2020 06:27 CLINICAL HISTORY: 29 years Female, RUQ pain Comparison: None. LIMITATIONS: None. FINDINGS: Gallbladder, negative sonographic Palencia's test, mild hepatic steatosis, a 0.3-cm diameter common bile duct, no intrahepatic ductal dilation, hepatopetal patent flow of the portal vein, 12-cm right kidney, pancreas, visualized vasculature/abdominal aorta, and no significant ascites appear otherwise unremarkable. IMPRESSION: No acute findings. Hepatic steatosis.
[2020-08-07 08:15] VITALS: BP 120/84
== END 2020-08-07 08:22 | disposition home or self-care (01) ==
LOC: ER 05:36
DX: R07.9 Chest pain, unspecified (principal); F17.200 Nicotine dependence, unspecified, uncomplicated; Z86.718 Personal history of other venous thrombosis and embolism; Z79.01 Long term (current) use of anticoagulants
CPT/HCPCS: 93005; 99285; 96374; 36415; 82553; 82550; 83690; 84703; 85025; 85610; 80053; 81001; 84484; 85379; 71045; 76705; 93010; J3010